=== PATIENT | female | born 1940 | race Asian ===

== ENCOUNTER 2018-12-08 10:03 | Inpatient (IN) | payer OTHER ==
[~2018-12-08] VITALS: Ht 139.7 cm; Wt 46.3 kg
[2018-12-08 10:14] VITALS: BP 182/94
--- NOTE | 2018-12-08 10:15 | NUR ---
pt amb to restroom with steady gait for urine sample
--- NOTE | 2018-12-08 10:18 | NUR ---
78 Y FEMALE BROUGHT IN BY DAUGHTER----MANDARIN SPEAKING ONLY PT. PT C/O PAIN TO VARIOUS SITES, HAS ANALGESIC PATCHES TO ALMOST EVERY BODY PART. PAIN 8/. DAUGHTER STATES PT BECAME VERY AGGITATED TODAY, SCREAMING, UPSET THAT DAUGHTER HAD GONE BACK TO [place] FOR A SHORT PERIOD. DAUGHTER STATES NO INJURY/TRUAMA. DAUGHTER CONCERNED FOR MOTHERS SAFETY. PT BP 182/94. AA0X4. BED IS DOWN, LOCKED, BED RIAL X 1, ERMD TO SEE PT. HX--DELUSIONAL DISORDER RX---OLANZAPINE
--- NOTE | 2018-12-08 10:20 | NUR ---
PER DAUGHTERS TRANSLATION, PT HAS NO INTENTION TO HURT HERSELF OR OTHERS.
--- NOTE | 2018-12-08 10:49 | NUR ---
dr suggs at [facility]
--- NOTE | 2018-12-08 10:57 | NUR ---
XRAY AT BEDSIDE
[2018-12-08 11:40] LABS: BASOPHILS % (AUTO) 0.6 % (0.0-2.0); EOSINOPHILS # (AUTO) 0.1 K/uL (0-0.4); EOSINOPHILS % (AUTO) 2.4 % (0.0-4.0); HEMATOCRIT 36.3 % (36-48); HEMOGLOBIN 11.9 g/dL (12.0-16.0); LYMPHOCYTES # (AUTO) 1.7 K/uL (2.5-16.5); LYMPHOCYTES % (AUTO) 28.7 % (20.5-51.1); MEAN CORPUSCULAR HEMOGLOBIN 29 pg (27-31); MEAN CORPUSCULAR HGB CONC 33 g/dL (33-37); MEAN CORPUSCULAR VOLUME 87.9 fL (80-94); MONOCYTES # (AUTO) 0.3 K/uL (0.8-1.0); MONOCYTES % (AUTO) 4.7 % (1.7-9.3); NEUTROPHILS # (AUTO) 3.7 K/uL (1.8-7.7); NEUTROPHILS % (AUTO) 63.6 % (42.2-75.2); PLATELET COUNT (AUTO) 295 K/uL (140-450); RED BLOOD CELL COUNT(AUTO) 4.14 MIL/uL (4.20-5.40); RED CELL DISTRIBUTION WIDTH 15.2 % (11.6-13.7); WHITE BLOOD COUNT (AUTO) 5.8 K/uL (4.8-10.8)
[2018-12-08 11:50] LABS: ANION GAP 10.2 (8-16); CARBON DIOXIDE 30.5 mmol/L (21-32); CHLORIDE 106 mmol/L (98-107); CREATININE 0.7 mg/dL (0.6-1.3); GLUCOSE 95 mg/dL (74-106); POTASSIUM 4.7 mmol/L (3.5-5.1); SODIUM SERUM 142 mmol/L (136-145); UREA NITROGEN, BLOOD 14 mg/dL (7-18)
[2018-12-08 11:55] LABS: APPEARANCE,URINE CLEAR (CLEAR); BILIRUBIN,URINE NEGATIVE (NEGATIVE); BLOOD, URINE NEGATIVE (NEGATIVE); COLOR,URINE YELLOW (YELLOW); LEUKOCYTE ESTERASE ,URINE 1+ (NEGATIVE); NITRITE, URINE NEGATIVE (NEGATIVE); UGLUCOSE NEGATIVE (NEGATIVE)
[2018-12-08 11:56] LABS: ALBUMIN 3.6 g/dL (3.4-5.0); ASPARTATE AMINOTRANSFERASE 42 U/L (15-37); TOTAL BILIRUBIN 0.4 mg/dL (0.0-1.0)
[2018-12-08 12:01] LABS: ACETAMINOPHEN < 0.5 ug/ml (10-30); SALICYLATE < 2.8 mg/dL (2.8-20.0)
[2018-12-08 12:06] LABS: BARBITURATE, URINE NEG. ng/ml (NEG <=200); BENZODIAZEPINE, URINE NEG. ng/mL (NEG <=200); CANNABINOID, URINE NEG. ng/mL (NEG <=50); COCAINE, URINE NEG. ng/mL (NEG <=300); OPIATE, URINE NEG. ng/mL (NEG <=2000); PHENCYCLIDINE SCREEN,URINE NEG. ng/mL (NEG <=25)
[2018-12-08 12:13] LABS: RBC,URINE NONE SEEN /HPF (0-5); WBC,URINE 0-5 /HPF (0-5)
--- NOTE | 2018-12-08 12:30 | NUR ---
dr suggs wishes the patient to speak with a tele psych, order placed by technician submarine cable equipment
--- NOTE | 2018-12-08 12:45 | NUR ---
REGUALR DIET ORDERED FOR PT
--- NOTE | 2018-12-08 13:04 | NUR ---
SPOKE WITH DR ARMSTRONG, PSYCHIATRIST, GAVE REPORT.
--- NOTE | 2018-12-08 13:10 | NUR ---
PT SPEAKING WITH DR ARMSTRONG VIA TELEPSYCH. DAUGHTER TRANSLATING.
--- NOTE | 2018-12-08 13:47 | NUR ---
PT EATING BEDSIDE
--- NOTE | 2018-12-08 13:53 | NUR ---
PSYCHIATRIST RECOMMENDS PT BE PLACED ON 5150 DUE TO GRAVELY DISABLED AND POSSIBLE HARM TO OTHERS.
--- NOTE | 2018-12-08 14:00 | NUR ---
5159 START TIME NOW. PT ACTING APPROPRIATELY. SUICIDAL PRECAUTIONS IN PLACE. 1-1 MONITORING. ALL OBJECTS REMOVED FROM ROOM. DAUGHTER BEDSIDE.
--- NOTE | 2018-12-08 14:27 | NUR ---
VSS AT THIS TIME. PT AA0X4.
--- NOTE | 2018-12-08 15:25 | NUR ---
DAUGHTER GIVEN COPY OF LAB RESULTS
[2018-12-08] MEDS ORDERED: OLAN2.5T1 PO (15:28)
--- NOTE | 2018-12-08 15:38 | NUR ---
1-1 MONITORING BY ASHLEY ANGUIANO. DAUGHTER BEDSIDE. PT LAYING IN BED QUIETLY.
--- NOTE | 2018-12-08 16:17 | NUR ---
DAUGHTER LEAVING, ASKED TO BE NOTIFIED OF PATIENT STATUS WHEN PT IS MOVED. JEARD [phone]
--- NOTE | 2018-12-08 16:43 | NUR ---
1-1 MONITORING BY ASHLEY ANGUIANO. PT LAYING IN BED QUIETLY.
--- NOTE | 2018-12-08 17:00 | NUR ---
LIGHTS TURNED OFF FOR PT COMFORT. VSS AT THIS TIME. PT LAYING IN BED WITH EYES CLOSED. 1-1 MONITORING BY ASHLEY ANGUIANO.
--- NOTE | 2018-12-08 18:05 | NUR ---
PT VISABLY UPSET. YELLING IN MANDARIN. CALLED TRANSLATER AND GAVE THE PATIENT THE PHONE. CITIZENSHIP TEACHER UNABLE TO IDENTIFY LANGUAGE AND STATES SHE BELIEVES THE PATIENT SPEAKS A DIFFERENT DIALECT OF MANDARIN. CALLED JERAD, DAUGHTER, AND LEFT A MESSAGE ASKING FOR HER TO ASSIST WITH TRANSLATION.
--- NOTE | 2018-12-08 18:25 | NUR ---
JANEY RN FROM ICU CAME TO TRANSLATE FOR PT. STATES SHE SPEAKS A DIALECT THAT HE DOESN'T SPEAK BUT CAN UNDERSTAND SOME OF WHAT SHE IS SAYING. STATES SHE CONTINUES TO TALK ABOUT HER FAMILY.
--- NOTE | 2018-12-08 18:26 | NUR ---
PT EATING DINNER UPRIGHT IN BED. CONTINUES TO SPEAK IN MANDARIN DIALECT. PT NO LONGER YELLING.
--- NOTE | 2018-12-08 19:10 | NUR ---
RECEIVED REPORT FROM DONNA HIDALGO.
--- NOTE | 2018-12-08 19:10 | NUR ---
REPORT GIVEN TO SOURAV THOMPSON, TRANSFER OF CARE AT THIS TIME
--- NOTE | 2018-12-08 19:47 | NUR ---
WAITING FOR AVAILABLE BED PER TESS, STUDENT SERVICES REPRESENTATIVE.
--- NOTE | 2018-12-08 20:35 | NUR ---
PT IS SLEEPING COMFORTABLY IN BED AT THIS TIME. STILL AWAITING BED.
--- NOTE | 2018-12-08 20:55 | NUR ---
Admitted from ED, with chief complaint of PER FAMILY, PT IS SCREAMING, YELLING, DELUSIONAL DISORDER. Pt is a 78 y/o ,Female, Awake, Alert and Oriented to self, speaks Mandarin per report. But ER Nurse said, they tried to use the public address announcer phone but the full time staff interpreter can't understand pt's language. Will call Daughter to get information. Pt oriented to call light, bed, phone,television, bathroom, smoking policy, visiting hours, procedures, ID bracelet on. Belongings list checked. Vital signs checked. Initial assessment done. Pt has some kind of Bengay patches all over her body and doesn't want it touched. Pt appears to understand and able to follow simple instructions. Safety reinforced. Contrabands in the room removed per protocol. Sitter at bedside.
[2018-12-08 21:00] VITALS: BP 108/52
--- NOTE | 2018-12-08 21:00 | NUR ---
Patient will be admitted to care of Dr. Marvin. Admited to MS. Will go to room 105-B. Belongings list completed. Report to DONNA Larios.
--- NOTE | 2018-12-08 21:30 | NUR ---
PT AWAKE, ALERT AND ORIENTED, KEEPS TALKING AND TALKING IN SOME KIND OF ROMANIAN LANGUAGE. PT GIVEN WATER TO DRINK AND ABLE TO SWALLOW. WILL CONTINUE TO MONITOR.
--- NOTE | 2018-12-08 22:55 | NUR ---
CALLED AND SPOKE TO PT'S DAUGHTER EZE SHIPLEY (JERAD-KAZAKH NAME) REGARDING PT'S INFORMATION. PER JERAD, PT'S DIALECT IS NOT COMMON AND ITS ONLY HER AND THE BROTHER UNDERSTANDS HER. ASKED HER WHAT'S PT'S BASELINE IN TERMS OF MENTAL STATUS. SHE SAID, "IT DEPENDS ON HER MOOD AND IF SHE WANTS TO TALK TO ANY OF US." " SHE'S BEEN LIKE THAT FOR THE LAST 15 YRS." "WE JUST CAME BACK FROM [facility] AND SHE STARTED SCREAMING, YELLING AND UPSET WITH US." ASKED IF PT HAS SUICIDAL IDEATION, DAUGHTER SAID "NONE". INFORMED HER THAT STAFF WILL JUST CALL HER IF ANYTHING COMES UP. PHONE NUMBER ON FILE- .
--- NOTE | 2018-12-08 23:08 | NUR ---
AT 230, PAGED DR PUGA FOR ADDITIONAL ORDERS. WILL AWAIT FOR CALL BACK. AT 2313, SPOKE TO DR PUGA AND ASKED FOR ADDITIONAL ADMITTING ORDERS, HE SAID "I THOUGHT PT IS NOT SUPPOSED TO BE ADMITTED." INFORMED HIM THAT PT ALREADY HERE AT 2100 AND THAT THERE'S NO MEDICATION ORDER AND ALSO CODE STATUS. INFORMED HIM THAT VTE SCORE IS 3 AND NEED DVT PROPHYLAXIS. HE SAID, "I'LL PUT THE ORDER IN."
[2018-12-08] MEDS ORDERED: ONDANSETRON 4 MG/2 ML VIAL IVP PRN (23:15)
[2018-12-08] MEDS ORDERED: HYDROcodone/APAP 5/325 MG 1 TAB TAB PO PRN (23:15)
[2018-12-08] MEDS ORDERED: ACETAMINOPHEN 325 MG TAB PO PRN (23:15)
[2018-12-08] MEDS ORDERED: ALBUTEROL 0.083% 2.5 MG/3 ML NEBU INH PRN (23:15)
[2018-12-09 04:15] VITALS: BP 116/48
--- NOTE | 2018-12-09 04:15 | NUR ---
SEEN PT ASLEEP BUT EASILY AROUSABLE. PT COOPERATIVE W/ VITAL SIGNS CHECK. NO DISCOMFORT OBSERVED. SITTER AT BEDSIDE. BED ALARM ON. PT KEPT COMFORTABLE. WILL CONTINUE TO MONITOR.
--- NOTE | 2018-12-09 05:15 | NUR ---
PT STILL SLEEPING COMFORTABLY. WILL CONTINUE TO MONITOR. SCD APPLIED FOR DVT PROPHYLAXIS.
--- NOTE | 2018-12-09 05:40 | NUR ---
NO placement was found , thru the shift , will endorsed to AM shift to continue to look for placement.
--- NOTE | 2018-12-09 06:45 | NUR ---
WILL ENDORSE CARE TO DAYSHIFT NURSE.
--- NOTE | 2018-12-09 07:58 | NUR ---
PATIENT HAS BEEN SCREENED AND CATEGORIZED LOW NUTRITION RISK. PATIENT WILL BE SEEN WITHIN 7 DAYS OF ADMISSION. 12/15/[address]
[2018-12-09 08:00] VITALS: BP 125/58
--- NOTE | 2018-12-09 08:16 | NUR ---
Received call from Sanrda at [facility]. Per Sandra they are not in contract with patient's insurance.
--- NOTE | 2018-12-09 08:33 | NUR ---
RECEIVED REPORT FROM DONNA KWONG AT BEDSIDE. PATIENT AWAKE ALERT ORIENTED TO HER NAME, SPEAKS MANDARIN ONLY THE BROTHER AND DAUGHTER CAN UNDERSTAND HER.NOT IN ANY DISTRESS NOTED. PATIENT WITH SITTER, AT BEDSIDE. WAITING FOR PSYCH CONSULT, NOTIFIED DR. ASTUDILLO AND MADE AWARE. WILL CONTINUE TO MONITOR.
[2018-12-09] MEDS ORDERED: OLANZapine 2.5 MG TAB PO SCH (09:00)
--- NOTE | 2018-12-09 10:18 | NUR ---
DUE MEDICATION GIVEN AND TOLERATED WELL, PATIENT IS CALM, UNABLE TO UNDERSTAND HER LANGUAGE. DAUGHTER JERAD CAME TO SEE THE PATIENT AND UPDATED ON PATIENT PLAN OF CARE.
--- NOTE | 2018-12-09 11:53 | NUR ---
PATIENT RESTING IN BED, DENIES ANY DISCOMFORT, WILL CONTINUE TO MONITOR. AWAITING FOR DR. ASTUDILLO TO EVALUATE THE PATIENT.
[2018-12-09 12:07] VITALS: BP 116/47
--- NOTE | 2018-12-09 12:35 | NUR ---
Followed up with [facility]. No beds.
--- NOTE | 2018-12-09 12:35 | NUR ---
Followed up with [place] [facility]. No beds.
--- NOTE | 2018-12-09 15:00 | NUR ---
SEEN AND EXAMINED BY DR. PUGA AND DR. ASTUDILLO. DR. ASTUDILLO SAID THAT PATIENT CAN STAY 1 MORE DAY AND POSSIBLE D/C TMW. PLAN OF CARE UPDATED TO THE DAUGHTER.
[2018-12-09] MEDS ORDERED: DULoxetine 30 MG CAPDR PO SCH (15:55)
[2018-12-09 16:29] VITALS: BP 119/48
--- NOTE | 2018-12-09 18:53 | NUR ---
PATIENT ATE MEALS WITH GOOD APPETITE, NO COMPLAIN OF PAIN, RESTING IN BED. WILL ENDORSE TO THE NEXT SHIFT FOR CONTINUITY OF CARE.
[2018-12-09 20:00] VITALS: BP 134/56
--- NOTE | 2018-12-09 20:44 | NUR ---
RECEIVED PATIENT ON ROOM AIR, PULSE OX SAT 93%. NO SOB NOTED AT THIS TIME. PRN BREATHING TREATMENT NOT INDICATED AT THIS TIME. NO RESPIRATORY DISTRESS NOTED AT THIS TIME. WILL CONTINUE TO MONITOR.
[2018-12-09] MEDS ORDERED: OLANZapine 5 MG TAB PO SCH (21:00)
--- NOTE | 2018-12-09 21:00 | NUR ---
REWFUSED ZYPREXA WILL TRY LATER;
--- NOTE | 2018-12-09 22:15 | NUR ---
MANAGER LOCATION WAS HERE PT REFUSED;COMBATIVE WILL TRY AGAIN LATER PER CT SCAN
--- NOTE | 2018-12-09 22:50 | NUR ---
PT UNDERCOVER AGENT SITTER WHO KNOWS HOW TO SPEAK GREEK, PT TOOK THE ZYPREXA, TOLERATED WELL.
--- NOTE | 2018-12-10 01:27 | NUR ---
PT ABLE TO GO TO BATHROOM. ACCOMPANIED TO PT TO THE BATHROOM
--- NOTE | 2018-12-10 03:18 | NUR ---
Follow up calls were made to the following contracted facilities. Still no bed vacancies at this time. [facility], spoke with Shaq. [facility], spoke with Aileen. [facility], [facility] Katlyn[facility], [facility] with Nehal. [facility], spoke with Carter. [facility], [facility] Mignon[facility], spoke with Magdalena. [facility], spoke with Serena. unit will be updated if a facility can accommodate the patient.
--- NOTE | 2018-12-10 07:25 | NUR ---
RECEIVED REPORT FROM THE CARD DOFFER NURSE AT BEDSIDE. PT IS SLEEPING. PER CARD DOFFER, PT IS L[place]ISH, ONLY SPEAKS MANDARIN. PT HAS MULTIPLE HERBAL PATCHES ON FACE AND ALL 4 EXTREMITIES. PER PT, IT HELPS WITH HER AILMENT. UNSURE WHICH AILMENT SHE IS SPEAKING OF. IV ON THE L HAND 22G SL. SCD'S ON. WILL CONTINUE TO MONITOR PT.
[2018-12-10 08:00] VITALS: BP 140/56
--- NOTE | 2018-12-10 08:09 | NUR ---
PT AWAKE, EATING BREAKFAST. NO SIGNS OF DISTRESS. WILL CONTINUE TO MONITOR PT.
[2018-12-10] MEDS ORDERED: DULoxetine 30 MG CAPDR PO SCH (09:00)
--- NOTE | 2018-12-10 10:18 | NUR ---
DAUGHTER CAME AND VISITED. PT WENT TO THE BATHROOM AND URINATED. PER DAUGHTER, PT LAST BM WAS 12/07. NO FEELINGS OF CONSTIPATION, BLOATING. DAUGHTER WILL BE BACK IN THE AFTERNOON.
--- NOTE | 2018-12-10 13:00 | NUR ---
PT ATE LUNCH AND IS NOW SLEEPING ON AND OFF. WILL CONTINUE TO MONITOR PT.
--- NOTE | 2018-12-10 13:44 | NUR ---
Contacted the following facilities: [facility]: packet on file for review [facility]: packet faxed again for review [facility]: packet on file for review Will continue to follow up with facilities and look for placement. Will contact with any updates
[2018-12-10] MEDS ORDERED: DULO30EC PO (14:46)
--- NOTE | 2018-12-10 15:00 | NUR ---
DR PUGA IS HERE TO SEE PT. PER , OK TO DC TODAY ONCE CLEARED BY PSYCH. PAGED DR ASTUDILLO, PER , WILL BE HERE AROUND 5PM, MOSTLY OK TO D/C HOME.
[2018-12-10 16:00] VITALS: BP 151/60
--- NOTE | 2018-12-10 17:31 | NUR ---
DC INSTRUCTIONS GIVEN TO FAMILY. REMOVED IV, CANNULA INTACT. NO BLEEDING NOTED. CALLED SECURITY FOR PT'S CLOTHES. REMOVED ID BANDS. PT IS IN STABLE CONDITION. ONCE PT GETS DRESSED, WILL WHEELCHAIR PT OUT TO THE CAR.
--- NOTE | 2018-12-10 17:40 | NUR ---
WHEELED PT OUT TO THE CAR. ALL PERSONAL BELONGINGS WITH PT. PT IN STABLE CONDITION.
== END 2018-12-10 17:40 | disposition home or self-care (01) | DRG 760 ==
LOC: MED 10:03 → MTU 19:17
PROVIDERS: ADMIT Internal Medicine Pulmonary Disease; ATTEND Internal Medicine Pulmonary Disease
DX: F22 Delusional disorders (principal); R45.851 Suicidal ideations; F32.9 Major depressive disorder, single episode, unspecified; F41.9 Anxiety disorder, unspecified; G89.4 Chronic pain syndrome; R45.1 Restlessness and agitation
CPT/HCPCS: 36415; 70450; 71045; 80053; 80305; 81001; 84484; 85025; 87081; 87086; 93005; 99285; G0480; G0482; Q0092